=== PATIENT | male | born 1965 | race Caucasian/White ===

== ENCOUNTER 2020-04-14 19:10 | Observation (INO) ==
[2020-04-14] MEDS ORDERED: 0.9 % Sodium Chloride 1,000 ML IVC ONE (19:32)
[2020-04-14 19:47] LABS: Basophils % 0.4 %; Eosinophils # 0.1 K/mcL (0.0-0.6); Eosinophils % 1.5 %; Immature Granulocytes % 0.1 % (0-4); Lymphocytes # 1.5 K/mcL (0.6-4.6); Lymphocytes % 20.7 %; Mean Corpuscular HGB Conc 33.3 g/dL (31.6-35.5); Mean Corpuscular Hemoglobin 34.8 pg (28.0-33.3); Mean Corpuscular Volume 104.3 fL (83.0-100.0); Mean Platelet Volume 8.8 fL (9.4-12.4); Monocytes # 0.8 K/mcL (0.0-1.3); Monocytes % 11.5 %; Neutrophils # 4.7 K/mcL (1.6-8.9); Platelet Count 207 K/mcL (140-400); Red Blood Count 4.89 M/mcL (4.19-5.50); Red Cell Distribution Width 14.4 % (11.5-14.5); Segmented Neutrophils % 65.8 %; White Blood Count 7.1 K/mcL (4.3-11.1)
[2020-04-14 19:59] LABS: Troponin I < 0.03 ng/mL (< 0.04)
[2020-04-14 20:00] LABS: BUN/Creatinine Ratio 8 (6-26); Blood Urea Nitrogen 6 mg/dL (6-20); Calcium 8.8 mg/dL (8.6-10.3); Carbon Dioxide 35 mEq/L (23-29); Chloride 98 mEq/L (98-107); Glucose 87 mg/dL (70-105); Osmolality,Calculated 285 (280-300); Potassium 3.9 mEq/L (3.5-5.1); Sodium 139 mEq/L (136-145); eGFR For African Americans > 60 (> 60); eGFR For Non-African Americans > 60 (> 60)
[2020-04-14] MEDS ORDERED: cefTRIAXone 1,000 MG in Water for inj. (sterile) 10 ML IVP ONE (20:15)
[2020-04-14] MEDS ORDERED: Azithromycin 500 MG in 0.9 % Sodium Chloride 250 ML IVPB ONE (20:15)
[2020-04-14] MEDS ORDERED: Ipratropium/Albuterol Neb 3 ML IH ONE (20:25)
[2020-04-14 20:31] LABS: Bilirubin,Urine Negative (Negative); Blood,Urine Negative (Negative); Clarity,Urine Slightly Cloudy (Clear); Color,Urine Yellow (Yellow); Glucose,Urine (UA) Normal (Normal); Ketones,Urine Negative (Negative); Leukocyte Esterase,Urine Negative (Negative); Nitrite,Urine Negative (Negative); Protein,Urine 30 mg/dL (Neg-Trace); Specific Gravity,Urine 1.015 (1.010-1.025); Urobilinogen,Urine Normal (Normal)
[2020-04-14 20:42] LABS: Amphetamine Screen,Urine Negative ng/mL (Cutoff=1000); Barbiturate Screen,Urine Negative ng/mL (Cutoff=200); Benzodiazepines Screen,Urine Negative ng/mL (Cutoff=200); Cannabinoid Screen,Urine Negative ng/mL (Cutoff = 50); Cocaine Screen,Urine Negative ng/mL (Cutoff= 300); Opiate Screen,Urine Negative ng/mL (Cutoff=300); Phencyclidine Screen,Urine Negative ng/mL (Cutoff=25)
[2020-04-14 20:55] LABS: Amorphous Sediment,Urine Few per hpf (None-Few)
[2020-04-14 21:58] LABS: Adenovirus Not Detected (Not Detect); Bordetella Pertussis Not Detected (Not Detect); Chlamydophila pneumoniae Not Detected (Not Detect); Coronavirus 229E Not Detected (Not Detect); Coronavirus HKU1 Not Detected (Not Detect); Coronavirus NL63 Not Detected (Not Detect); Coronavirus OC43 Not Detected (Not Detect); Human Metapneumovirus Not Detected (Not Detect); Human Rhinovirus/Enterovirus DETECTED (Not Detect); Influenza A Subtype 2009 H1 Not Detected (Not Detect); Influenza B Not Detected (Not Detect); Mycoplasma pneumoniae Not Detected (Not Detect); Parainfluenza Virus 1 Not Detected (Not Detect); Parainfluenza Virus 2 Not Detected (Not Detect); Parainfluenza Virus 3 Not Detected (Not Detect); Parainfluenza Virus 4 Not Detected (Not Detect); Respiratory Syncytial Virus Not Detected (Not Detect); SARS-CoV-2 Not Detected (Not Detect)
[2020-04-14] MEDS ORDERED: *HR* Promethazine 25 MG/ML VIAL IVP PRN (23:06)
[2020-04-14] MEDS ORDERED: *HR* LORazepam 2 MG/ML VIAL IVP PRN ×3 (23:06)
[2020-04-14] MEDS ORDERED: Ipratropium/Albuterol Neb 3 ML IH PRN (23:06)
[2020-04-15] MEDS: Acetaminophen 325 MG TABLET PO PRN ×3 (04:29→17:09)
[2020-04-15 05:18] LABS: Basophils % 0.3 %; Eosinophils # 0.1 K/mcL (0.0-0.6); Eosinophils % 1.3 %; Hematocrit 48.7 % (37.5-50.1); Immature Granulocytes % 0.3 % (0-4); Lymphocytes % 15.4 %; Mean Corpuscular HGB Conc 32.9 g/dL (31.6-35.5); Mean Corpuscular Hemoglobin 34.4 pg (28.0-33.3); Mean Corpuscular Volume 104.7 fL (83.0-100.0); Mean Platelet Volume 8.9 fL (9.4-12.4); Monocytes # 0.8 K/mcL (0.0-1.3); Neutrophils # 4.4 K/mcL (1.6-8.9); Platelet Count 175 K/mcL (140-400); Red Blood Count 4.65 M/mcL (4.19-5.50); Red Cell Distribution Width 14.2 % (11.5-14.5); Segmented Neutrophils % 70.7 %; White Blood Count 6.2 K/mcL (4.3-11.1)
[2020-04-15 05:32] LABS: BUN/Creatinine Ratio 8 (6-26); Blood Urea Nitrogen 5 mg/dL (6-20); Calcium 8.3 mg/dL (8.6-10.3); Carbon Dioxide 35 mEq/L (23-29); Chloride 102 mEq/L (98-107); Glucose 80 mg/dL (70-105); Osmolality,Calculated 290 (280-300); Sodium 142 mEq/L (136-145); eGFR For African Americans > 60 (> 60); eGFR For Non-African Americans > 60 (> 60)
[2020-04-15] MEDS ORDERED: Ipratropium/Albuterol Neb 3 ML ONE (10:04)
[2020-04-15] MEDS: MethylPREDNISolone 40 MG/ML VIAL IVP SCH ×2 (10:52→17:07)
[2020-04-15] MEDS: Ipratropium/Albuterol Neb 3 ML IH SCH ×3 (11:05→21:51)
[2020-04-15] MEDS: Ibuprofen 400 MG TABLET PO PRN (19:36)
[2020-04-16] MEDS: MethylPREDNISolone 40 MG/ML VIAL IVP SCH ×3 (01:46→17:21)
[2020-04-16] MEDS: Ipratropium/Albuterol Neb 3 ML IH SCH ×4 (03:47→22:28)
[2020-04-16] MEDS: levoFLOXacin 750 MG/150 ML 750 MG/150 ML BAG IVPB SCH (12:35)
[2020-04-16] MEDS: Ibuprofen 400 MG TABLET PO PRN (21:48)
[2020-04-17] MEDS: MethylPREDNISolone 40 MG/ML VIAL IVP SCH ×2 (01:55→11:51)
[2020-04-17] MEDS: Ipratropium/Albuterol Neb 3 ML IH SCH ×2 (04:28→09:23)
[2020-04-17 05:35] LABS: Hematocrit 52.2 % (37.5-50.1); Hemoglobin 16.7 g/dL (12.9-16.9); Mean Corpuscular Hemoglobin 33.8 pg (28.0-33.3); Mean Corpuscular Volume 105.7 fL (83.0-100.0); Platelet Count 233 K/mcL (140-400); Red Blood Count 4.94 M/mcL (4.19-5.50); White Blood Count 10.9 K/mcL (4.3-11.1)
[2020-04-17 05:55] LABS: BUN/Creatinine Ratio 22 (6-26); Blood Urea Nitrogen 14 mg/dL (6-20); Calcium 9.2 mg/dL (8.6-10.3); Carbon Dioxide 35 mEq/L (23-29); Chloride 99 mEq/L (98-107); Glucose 126 mg/dL (70-105); Magnesium 1.8 mg/dL (1.6-2.6); Osmolality,Calculated 290 (280-300); Potassium 4.1 mEq/L (3.5-5.1); Sodium 139 mEq/L (136-145); eGFR For African Americans > 60 (> 60); eGFR For Non-African Americans > 60 (> 60)
[2020-04-17 07:44] VITALS: BP 126/76
[2020-04-17] MEDS: levoFLOXacin 750 MG/150 ML 750 MG/150 ML BAG IVPB SCH (08:18)
[2020-04-17] MEDS: Acetaminophen 325 MG TABLET PO PRN (08:28)
== END 2020-04-17 12:04 | disposition home or self-care (01) ==
LOC: EMEROOGRE 19:10 → INPGRE 19:10
PROVIDERS: ADMIT Family Medicine; ATTEND Family Medicine

== ENCOUNTER 2021-02-02 21:14 | Observation (INO) ==
[2021-02-02] MEDS ORDERED: Nitroglycerin 1 INCH/GM PACKET TP ONE (21:43)
[2021-02-02 21:55] LABS: Basophils % 0.4 %; Eosinophils % 0.3 %; Hemoglobin 18.1 g/dL (12.9-16.9); Immature Granulocytes % 0.3 % (0-4); Lymphocytes # 2.7 K/mcL (0.6-4.6); Lymphocytes % 30.2 %; Mean Corpuscular HGB Conc 32.4 g/dL (31.6-35.5); Mean Corpuscular Hemoglobin 34.8 pg (28.0-33.3); Mean Corpuscular Volume 107.3 fL (83.0-100.0); Mean Platelet Volume 8.6 fL (9.4-12.4); Monocytes # 0.7 K/mcL (0.0-1.3); Monocytes % 7.7 %; Neutrophils # 5.5 K/mcL (1.6-8.9); Nucleated Red Blood Cells 0.4 /100 WBC (0); Platelet Count 288 K/mcL (140-400); Red Cell Distribution Width 15.4 % (11.5-14.5); Segmented Neutrophils % 61.1 %
[2021-02-02 21:58] LABS: Hematocrit 55.8 % (37.5-50.1)
[2021-02-02 22:07] LABS: Troponin I 0.03 ng/mL (< 0.04)
[2021-02-02 22:10] LABS: Alanine Aminotransferase 70 Units/L (7-52); Albumin 4.2 g/dL (3.5-5.7); Albumin/Globulin Ratio 1.6 (1.1-2.2); Alkaline Phosphatase 65 Units/L (34-104); Aspartate Amino Transferase 59 Units/L (13-39); BUN/Creatinine Ratio 17 (6-26); Bilirubin,Total 0.5 mg/dL (0.3-1.0); Blood Urea Nitrogen 14 mg/dL (6-20); Calcium 9.4 mg/dL (8.6-10.3); Carbon Dioxide 40 mEq/L (23-29); Chloride 97 mEq/L (98-107); Globulin 2.6 g/dL (2.4-3.5); Glucose 93 mg/dL (70-105); Magnesium 1.6 mg/dL (1.6-2.6); Osmolality,Calculated 298 (280-300); Potassium 3.5 mEq/L (3.5-5.1); Sodium 144 mEq/L (136-145); Total Protein 6.8 g/dL (6.4-8.9); eGFR For African Americans > 60 (> 60); eGFR For Non-African Americans > 60 (> 60)
[2021-02-02 22:20] LABS: Prothrombin Time 11.2 Seconds (9.4-12.1)
[2021-02-02 22:22] LABS: Thyroid Stimulating Hormone 1.167 mcIU/mL (0.340-5.600)
[2021-02-02 22:23] LABS: Activated Partial Thrombo Time 21.8 Seconds (26.0-36.0)
[2021-02-02] MEDS ORDERED: methylPREDNISolone 125 MG/2 ML VIAL IVP ONE (22:47)
[2021-02-02] MEDS ORDERED: Ipratropium/Albuterol Neb 3 ML IH ONE (22:47)
[2021-02-02] MEDS ORDERED: levoFLOXacin 500 MG/100 ML 500 MG/100 ML BAG IVPB ONE (22:48)
[2021-02-02] MEDS ORDERED: Naloxone 0.4 MG/ML INJ IVP PRN (23:07)
[2021-02-02] MEDS ORDERED: Mag Hydrox/Al Hydrox/Simeth 30 ML UDC PO PRN (23:07)
[2021-02-02] MEDS ORDERED: Melatonin 3 MG TABLET PO PRN (23:07)
[2021-02-02] MEDS ORDERED: MethylPREDNISolone 40 MG/ML VIAL IVP SCH (23:15)
[2021-02-02] MEDS ORDERED: Acetaminophen 325 MG TABLET PO ONE (23:29)
[2021-02-03] MEDS ORDERED: Ipratropium/Albuterol Neb 3 ML IH PRN
[2021-02-03] MEDS: Ondansetron ODT 4 MG TAB.RAPDIS SL PRN ×2 (00:09→13:11)
[2021-02-03] MEDS: Ketorolac 15 MG/ML VIAL IVP PRN ×2 (04:07→13:10)
[2021-02-03] MEDS ORDERED: *HR* Enoxaparin 40 MG/0.4 ML SYRINGE SQ SCH (06:00)
[2021-02-03] MEDS: MethylPREDNISolone 40 MG/ML VIAL IVP SCH ×3 (06:18→18:44)
[2021-02-03 12:32] LABS: ABG Base Excess 10 mEq/L (-2 to 3); ABG HCO3 41 mEq/L (21-27); ABG Oxygen Saturation 88 % (95-98); ABG PCO2 79 mmHg (35-45); ABG PH 7.32 pH Units (7.32-7.45); ABG PO2 62 mmHg (85-104); ABG TCO2 43 mEq/L (20-26)
[2021-02-03] MEDS ORDERED: Ketorolac 30 MG/ML VIAL IVP PRN (15:16)
[2021-02-03] MEDS: Ipratropium/Albuterol Neb 3 ML IH SCH ×2 (15:22→19:39)
[2021-02-03 16:39] LABS: Bilirubin,Urine Negative (Negative); Blood,Urine Negative (Negative); Clarity,Urine Clear (Clear); Color,Urine Yellow (Yellow); Glucose,Urine (UA) Normal (Normal); Ketones,Urine Negative (Negative); Leukocyte Esterase,Urine Negative (Negative); Nitrite,Urine Negative (Negative); Protein,Urine 100 mg/dL (Neg-Trace); Specific Gravity,Urine >= 1.030 (1.010-1.025); Urobilinogen,Urine Normal (Normal)
[2021-02-03 16:44] LABS: Amorphous Sediment,Urine Few per hpf (None-Few); Mucus,Urine Few per lpf (None-Few); Squamous Epithelial Cell,Urine Few per hpf (None-Few)
[2021-02-03] MEDS ORDERED: *HR* Promethazine 25 MG/ML VIAL IM PRN (18:06)
[2021-02-03] MEDS ORDERED: *HR* LORazepam 2 MG/ML VIAL IVP PRN ×3 (18:06)
[2021-02-03] MEDS ORDERED: *HR* LORazepam 1 MG TABLET PO ONE (18:10)
[2021-02-03] MEDS ORDERED: Vitamin B Complex/Vit C/Vit E 1 EACH TABLET PO SCH (18:15)
[2021-02-03] MEDS ORDERED: Thiamine (B-1) 100 MG TABLET PO SCH (18:15)
[2021-02-03] MEDS ORDERED: Folic Acid 1 MG TABLET PO SCH (18:15)
[2021-02-03] MEDS ORDERED: *HR* LORazepam 1 MG TABLET PO SCH (18:45)
[2021-02-03 19:24] VITALS: BP 113/74
[2021-02-03 19:37] LABS: ABG Base Excess 10 mEq/L (-2 to 3); ABG HCO3 39 mEq/L (21-27); ABG Oxygen Saturation 88 % (95-98); ABG PCO2 70 mmHg (35-45); ABG PH 7.36 pH Units (7.32-7.45); ABG PO2 60 mmHg (85-104); ABG TCO2 42 mEq/L (20-26)
[2021-02-03] MEDS ORDERED: Nicotine 21 MG PATCH.TD24 TD SCH (20:00)
[2021-02-03 20:05] LABS: Adenovirus Not Detected (Not Detect); Bordetella Pertussis Not Detected (Not Detect); Chlamydophila pneumoniae Not Detected (Not Detect); Coronavirus 229E Not Detected (Not Detect); Coronavirus HKU1 Not Detected (Not Detect); Coronavirus NL63 Not Detected (Not Detect); Coronavirus OC43 Not Detected (Not Detect); Human Metapneumovirus Not Detected (Not Detect); Human Rhinovirus/Enterovirus Not Detected (Not Detect); Influenza A Subtype 2009 H1 Not Detected (Not Detect); Influenza B Not Detected (Not Detect); Mycoplasma pneumoniae Not Detected (Not Detect); Parainfluenza Virus 1 Not Detected (Not Detect); Parainfluenza Virus 2 Not Detected (Not Detect); Parainfluenza Virus 3 Not Detected (Not Detect); Parainfluenza Virus 4 Not Detected (Not Detect); Respiratory Syncytial Virus Not Detected (Not Detect); SARS-CoV-2 Not Detected (Not Detect)
[2021-02-03] MEDS ORDERED: Budesonide/Formoterol 160/4.5 1 PUFF INH IH SCH (22:00)
[2021-02-03] MEDS ORDERED: levoFLOXacin 500 MG/100 ML 500 MG/100 ML BAG IVPB SCH (23:45)
[2021-02-04 11:04] LABS: Amphetamine Screen,Urine Negative ng/mL (Cutoff=1000); Barbiturate Screen,Urine Positive ng/mL (Cutoff=200); Benzodiazepines Screen,Urine Negative ng/mL (Cutoff=200); Cannabinoid Screen,Urine Negative ng/mL (Cutoff = 50); Cocaine Screen,Urine Negative ng/mL (Cutoff= 300); Opiate Screen,Urine Negative ng/mL (Cutoff=300); Phencyclidine Screen,Urine Negative ng/mL (Cutoff=25)
[2021-02-04] MEDS ORDERED: acetaZOLAMIDE 250 MG TABLET PO SCH (14:43)
== END 2021-02-03 20:10 | disposition left against medical advice (07) ==
LOC: INPGRE 21:14 → EMEROOGRE 21:14 → INPGRE 23:21
PROVIDERS: ADMIT Family Medicine; ATTEND Family Medicine